=== PATIENT | male | born 1960 | race Caucasian/White ===

== ENCOUNTER 2023-10-01 11:04 | Outpatient (CLI) | payer MEDICARE, SELFPAY ==
[2023-10-01 11:37] LABS: Basophils Absolute Auto 0.1 K/mm3 (0.0-0.1); Basophils Percent Auto 0.8 % (0.2-1.2); Eosinophils Absolute Auto 0.3 K/mm3 (0-0.3); Eosinophils Percent Auto 3.2 % (0-4.4); Hematocrit 42.7 % (42.0-52.0); Hemoglobin 13.8 g/dL (14.0-18.0); Immature Granulocyte Absolute 0.07 K/mm3 (0.00-0.031); Immature Granulocyte Percent A 0.7 % (0-0.5); Lymphocytes Absolute Auto 2.11 K/mm3 (0.9-3.2); Lymphocytes Percent Auto 21.1 % (18.3-44.2); Mean Corpuscular HGB Conc 32.3 g/dl (32-36); Mean Corpuscular Volume 105.2 fl (80-100); Mean Platelet Volume 9.9 fl (7.4-10.4); Monocytes Absolute Auto 0.7 K/mm3 (0.1-0.6); Monocytes Percent Auto 6.5 % (2.6-8.5); Neutrophils Absolute Auto 6.8 K/mm3 (1.3-6.7); Neutrophils Percent Auto 67.7 % (45.5-73.1); Platelet Count Result 183 k/mm3 (150-375); Red Blood Count 4.06 M/mm3 (4.6-6.20)
[2023-10-01 11:39] LABS: Appearance Urine Clear (Clear); Bilirubin Urine Negative (Negative); Blood Urine Negative (Negative); Color Urine Yellow (Yellow); Glucose Urine UA Negative (Negative); Ketones Urine Trace mg/dL (Negative); Leukocyte Esterase Ur Negative LEU/UL (Negative); Nitrate Urine Negative (Negative); Protein Urine Negative (Negative); Specific Grav Ur 1.027 (1.001-1.035); Urobilinogen Urine 0.2 mg/dL (<2.0); pH Urine 5.5 (5.0-9.0)
[2023-10-01 11:46] LABS: Add Urine Microscopic? NO
[2023-10-01 11:53] LABS: Anisocytosis 1+; Macrocytosis 1+ (NORMAL); Platelet Estimate Adequate (Adequate)
[2023-10-01 11:59] LABS: Albumin Level 4.7 g/dL (3.5-5.1); Anion Gap 6 mmol/L (4-12); Blood Urea Nitrogen 28 mg/dL (9-20); Calcium 9.9 mg/dL (8.4-10.2); Carbon Dioxide 31 mmol/L (22-30); Chloride 103 mmol/L (98-107); Estimated Glomerular Filt Rate 41; Glucose 96 mg/dL (65-110); Phosphorus 4.1 mg/dL (2.5-4.5); Potassium 4.3 mmol/L (3.4-5.0); Sodium 140 mmol/L (137-145)
[2023-10-01 12:11] LABS: Schistocytes None Seen
== END 2023-10-01 11:05 | disposition home or self-care (01) ==
PROVIDERS: Visit Provider Internal Medicine Nephrology
DX: I12.9 Hypertensive chronic kidney disease with stage 1 through stage 4 chronic kidney disease, or unspecified chronic kidney disease (principal); N18.30 Chronic kidney disease, stage 3 unspecified; N20.0 Calculus of kidney
CPT/HCPCS: 36415; 80069; 81003; 85025

== ENCOUNTER 2024-02-08 02:02 | Day surgery (SDC) | payer MEDICARE, SELFPAY ==
[2024-01-15 13:24] VITALS: BMI 36.5
[2024-02-08 07:40] VITALS: BP 107/68; PULSE 85; RESP 18; TEMP 36.1; O2SAT 95; BMI 36.4
[2024-02-08] MEDS: LACTATED RINGERS 1,000 ML 150 ML IV CONT (07:50)
--- NOTE | 2024-02-08 08:02 | P.PNAN_ITS ---
Anes - Initial Pre Proc Eval Procedure: Operation Date: 02/08/24 09:00 Proposed Procedures p Screening Colonoscopy - Mark Jean Baptiste MD Date/Time: 02/08/24 08:02 Surgeon: Mark Jean Baptiste MD Pre Op Diagnosis: Neoplasm screening Patient Data Age: 63 Gender: M Height: 1.73 m Weight: 108.7 kg Last Vital Signs Temp 97 F L 02/08/24 07:40 Pulse 85 02/08/24 07:40 Resp 18 02/08/24 07:40 BP 107/68 02/08/24 07:40 Pulse Ox 95 02/08/24 07:40 O2 Del Method Room Air 02/08/24 07:40 Allergies Allergy/AdvReac Type Severity Reaction Status Date / Time No Known Allergies Allergy Verified 02/08/24 07:39 Home Medications Medication Instructions Recorded Confirmed Type hydrochlorothiazide 25 mg tablet 25 mg PO DAILY 01/15/24 02/08/24 History losartan 100 mg tablet 100 mg PO DAILY 01/15/24 02/08/24 History nifedipine 60 mg tablet,extended 60 mg PO DAILY 01/15/24 02/08/24 History release 24 hr rosuvastatin 10 mg tablet 10 mg PO DAILY 01/15/24 02/08/24 History Patient hx anesthesia problems: none Family hx anesthesia problems: none Results Review: All pre-operative results and documents have been reviewed as part of the pre- operative evaluation. [facility] Family History Family History Father Family history of chronic obstructive pulmonary disease Family history of coronary artery disease Mother Family history of lung cancer Social History Social History Years smoked: 30 Smoking status: Current every day smoker Tobacco type: cigarettes Alcohol intake: current Substance use type: does not use Living arrangements: with family Anes - Eval Final PreProcedure Day of Procedure 02/08/24 08:02 Patient weight: obese Heart: regular rate and rhythm Lungs: clear to auscultation Airway: Mallampati scale class III and special considerations (Teeth in very poor condition, none loose per his report. ) Neurological: alert and oriented Last oral intake: >/= 8 hours ASA classification: III Emergent: no Anesthetic plan: proceed Anesthesia type and monitoring: general GIVS and standard monitoring Results Review: All pre-operative results and documents have been reviewed as part of the pre- operative evaluation. HTN, hyperlipidemia, smoker 1 ppd for 30 years, smoked at 6 am. Pt has been recommended to have sleep study but he has not done so. Informed Consent: The patient's anesthetic plan and its attendant risks and benefits were dis cussed with the patient/family/POA. Questions were solicited and answers provided to the satisfaction of the patient/family/POA.
--- NOTE | 2024-02-08 08:27 | PM.HPGS ---
History of Present Illness History of Present Illness Consent: Risks, benefits, and alternatives have been discussed and questions answered. Patient agrees to proceed with procedure. Chief complaint: Neoplasm screening Narrative: Victor Hugo Arriaza is a 63 year old male here for screening colonoscopy, last one more than 10 years ago Review of Systems Review of Systems: All systems reviewed & are unremarkable except as noted in HPI and below PMFSH Past Medical History Medical History (Updated 02/08/24 @ 08:28 by Mark Jean Baptiste MD) Colon cancer screening Family History Family History Father Family history of chronic obstructive pulmonary disease Family history of coronary artery disease Mother Family history of lung cancer Social History Social History Years smoked: 30 Smoking status: Current every day smoker Tobacco type: cigarettes Alcohol intake: current Substance use type: does not use Living arrangements: with family Meds Home Medications and Allergies Home Medications Medication Instructions Recorded Confirmed Type hydrochlorothiazide 25 mg tablet 25 mg PO DAILY 01/15/24 02/08/24 History losartan 100 mg tablet 100 mg PO DAILY 01/15/24 02/08/24 History nifedipine 60 mg tablet,extended 60 mg PO DAILY 01/15/24 02/08/24 History release 24 hr rosuvastatin 10 mg tablet 10 mg PO DAILY 01/15/24 02/08/24 History Allergies Allergy/AdvReac Type Severity Reaction Status Date / Time No Known Allergies Allergy Verified 02/08/24 07:39 Vital Signs Vital Signs - 24 hr 02/08/24 07:40 Temperature 97 F L Pulse Rate 85 Respiratory Rate 18 Blood Pressure 107/68 Pulse Oximetry 95 Oxygen Delivery Room Air Exam Const: General: comfortable and no acute distress HENMT: Face/Nose/Sinus: Normal nares present Eyes: General: appearance normal, both eyes and all related structures Neck: Neck: no JVD Resp: Auscultation: clear to auscultation bilaterally Cardio: Rate: regular rate Rhythm: regular rhythm GI: Inspection: non-distended GI Palp: Yes Soft to palpation Skin: General skin exam: normal color Neuro: General: gait normal Speech: normal speech Extrem: General: normal to inspection Psych: Mental Status: mental status grossly normal Assessment and Plan Assessment and plan (1) Colon cancer screening: Code(s): Z12.11 - Encounter for screening for malignant neoplasm of colon Status: Acute Assessment and Plan: colonoscopy
[2024-02-08 08:46] VITALS: BP 93/48; PULSE 72; RESP 18; O2SAT 92
[2024-02-08 08:56] VITALS: BP 95/56; PULSE 74; RESP 17; O2SAT 100
== END 2024-02-08 09:13 | disposition home or self-care (01) ==
PROVIDERS: PCP Nurse Practitioner Family; Visit Provider Internal Medicine Gastroenterology
PROC: 0DJD8ZZ Inspection of Lower Intestinal Tract, Via Natural or Artificial Opening Endoscopic (ICD-10-PCS; CPT 45378; principal; 2024-02-08 09:00)
DX: Z12.11 Encounter for screening for malignant neoplasm of colon (principal); K64.8 Other hemorrhoids; K57.30 Diverticulosis of large intestine without perforation or abscess without bleeding; F17.210 Nicotine dependence, cigarettes, uncomplicated; E66.9 Obesity, unspecified; Z68.36 Body mass index [BMI] 36.0-36.9, adult; Z80.1 Family history of malignant neoplasm of trachea, bronchus and lung; Z82.49 Family history of ischemic heart disease and other diseases of the circulatory system
CPT/HCPCS: G0105; J2704; J7120

== ENCOUNTER 2025-05-05 13:10 | Outpatient (CLI) | payer MEDICARE, SELFPAY ==
--- NOTE | ~2025-05-05 | US_ITS ---
EXAM/PROCEDURE: US renal BI HISTORY: Stage 3 chronic kidney dz COMPARISON: None available. TECHNIQUE: Renal cyst FINDINGS: Right kidney: 10.2 x 4.6 x 6.6 cm Left kidney: 10.2 x 5.1 x 5.5 cm No cyst or mass seen. Both kidneys appear normal. Urinary bladder is nondistended but no obvious abnormality seen. IMPRESSION: Normal-appearing kidneys. No cyst or mass seen. Correlate with any prior imaging; if there is suspected lesion seen on outside imaging, consider correlation with renal CT or abdominal MRI. Reviewed, dictated and finalized at location A. [facility] IMPRESSION: Normal-appearing kidneys. No cyst or mass seen. Correlate with any prior imagin g; if there is suspected lesion seen on outside imaging, consider correlation w ith renal CT or abdominal MRI.
== END 2025-05-05 13:11 | disposition home or self-care (01) ==
LOC: MICIMG 13:12
PROVIDERS: PCP Nurse Practitioner Family; Visit Provider Internal Medicine Nephrology
DX: E11.21 Type 2 diabetes mellitus with diabetic nephropathy (principal); I12.9 Hypertensive chronic kidney disease with stage 1 through stage 4 chronic kidney disease, or unspecified chronic kidney disease; N18.31 Chronic kidney disease, stage 3a
CPT/HCPCS: 76770